=== PATIENT | male | born 1995 | race Caucasian/White ===

== ENCOUNTER 2016-11-13 01:15 | Emergency (ER) | payer MEDICAID ==
[2016-11-13 01:30] VITALS: BP 111/69; PULSE 96; RESP 18; TEMP 98.1; O2SAT 98
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
== END 2016-11-13 04:00 | disposition home or self-care (01) ==
LOC: H.ER 01:15
DX: S01.81XA Laceration without foreign body of other part of head, initial encounter (principal); W22.8XXA Striking against or struck by other objects, initial encounter; Y92.89 Other specified places as the place of occurrence of the external cause

== ENCOUNTER 2017-08-02 15:41 | Emergency (ER) | payer MEDICAID ==
[2017-08-02 16:03] VITALS: BP 124/72; PULSE 78; RESP 16; TEMP 97.9; O2SAT 98
[2017-08-02] MEDS ORDERED: Naproxen 500 MG TAB PO STA (17:35)
--- NOTE | 2017-08-02 17:45 | ED PDOC ---
HPI: Back Time Seen by Provider: 08/02/17 16:25 Chief Complaint (Nursing): Back Pain Chief Complaint (Provider): Back Pain History Per: Patient History/Exam Limitations: no limitations Onset/Duration Of Symptoms: Waxing/Waning Current Symptoms Are (Timing): Still Present Previous Symptoms: Chronic Pain Additional Complaint(s): Patient is a 22 y/o male who presents to the ED complaining of pain to the right lower back, ongoing for multiple years but worsened today. No fall or injury. States his PMD would not give him a refill so he came here, requesting pain medication. Pain worsens with movement. Patient reports he found an old bottle of Percocet yesterday and took the last one. No medications for pain relief were taken today. Otherwise: (-) chest pain, (-) SOB, (-) nausea, (-) vomiting, (-) weakness, (-) paresthesias, (-) acute bowel or bladder dysfunction , (-) abdominal pain, (-) fever, (-) hematuria (-)dysuria, frequency (-)weakness /numbess. PMD: unknown Past Medical History Reviewed: Historical Data, Nursing Documentation, Vital Signs Vital Signs: Last Vital Signs Temp 97.9 F 08/02/17 15:58 Pulse 78 08/02/17 15:58 Resp 16 08/02/17 15:58 BP 124/72 08/02/17 15:58 Pulse Ox 98 08/02/17 15:58 - Medical History PMH: Asthma, Back Problems (chronic back pain) - Family History Family History: States: Unknown Family Hx - Social History Current smoker - smoking cessation education provided: Yes SMOKER/PACKS PER DAY:: 1 Alcohol: None Drugs: Denies (quit 3 years ago) - Immunization History Hx Tetanus Toxoid Vaccination: Yes (2015) Hx Influenza Vaccination: No Hx Pneumococcal Vaccination: No - Home Medications Home Medications: Ambulatory Orders Medication Instructions Recorded No Known Home Med 02/05/17 - Allergies Allergies/Adverse Reactions: Allergies Allergy/AdvReac Type Severity Reaction Status Date / Time No Known Allergies Allergy Verified 08/02/17 15:58 Review of Systems ROS Statement: Except As Marked, All Systems Reviewed And Found Negative Constitutional: Negative for: Fever, Chills Genitourinary Male: Negative for: Incontinence, Hematuria Musculoskeletal: Positive for: Back Pain Neurological: Negative for: Weakness, Numbness Physical Exam - Reviewed Nursing Documentation Reviewed: Yes Vital Signs Reviewed: Yes - Physical Exam Comments: GENERAL APPEARANCE: Patient is awake, alert, oriented x 3, in no acute distress. Ambulatory in ED without difficulty. SKIN: Warm, dry; (-) cyanosis. EYES: (-) conjunctival pallor. ENMT: Mucous membranes moist. NECK: Supple, FROM (-) tenderness, (-) stiffness CHEST AND RESPIRATORY: (-) rales, (-) rhonchi, (-) wheezes; breath sounds equal bilaterally. HEART AND CARDIOVASCULAR: (-) irregularity; (-) murmur, (-) gallop. ABDOMEN AND GI: Soft; (-) tenderness; (-) guarding (-) distention. BACK: (+) right paralumbar tenderness, (+) mild spasm, (-) midline tenderness, (-) sciatic notch tenderness. Straight leg raising (-) bilaterally. EXTREMITIES: (-) deformity. Distal pulses good bilaterally. NEURO AND PSYCH: Mental status as above. Intact sensation bilaterally; normal strength in extension of the knees, plantar and dorsiflexion of the toes. - ECG O2 Sat by Pulse Oximetry: 98 (RA) Pulse Ox Interpretation: Normal Medical Decision Making Medical Decision Making: Initial Impression: Acute on chronic back pain Patient requesting Percocet. Hospital pain policy d/w patient in detail. Patient advised that narcotics cannot be refilled from the ED and he must see pmd or orthopedist for chronic pain management. Time: 17:27 Initial Plan: * Flexeril 10 mg PO * Naproxen 500 mg PO * IM Toradol offered but patient declined * Reevaluation Patient approaching PA and nurse multiple times throughout visit requesting refill of Percocet. Advised patient that he will need to follow up with his primary doctor or a specialist, referral for orthopedist provided. 17:58 After refusal of narcotics, patient is requesting to leave before reevaluation stating he has to go to work. States he has a ride who is here to pick him up for work and he cannot wait any longer. Patient has remained stable throughout ED visit. On examination, patient is in no acute distress, AAOx3, ambulating with steady gait. Advised to follow up with primary care physician or orthopedist in 1-2 days. Advised to take OTC medication as needed. Return to the emergency room at any time for any new or worsening symptoms. Scribe Attestation: Documented by Ibeth Garcia, acting as a scribe for Kim Pike PA-C Provider Scribe Attestation: All medical record entries made by the Scribe were at my direction and personally dictated by me. I have reviewed the chart and agree that the record accurately reflects my personal performance of the history, physical exam, medical decision making, and the department course for this patient. I have also personally directed, reviewed, and agree with the discharge instructions and disposition. Disposition - Clinical Impression Clinical Impression: Chronic back pain - Patient ED Disposition Is Patient to be Admitted: No Counseled Patient/Family Regarding: Diagnosis, Need For Followup - Disposition Referrals: Zac Chandler III, MD [Staff Provider] - Disposition: Routine/Home Disposition Time: 18:02 Condition: FAIR Additional Instructions: USE IBUPROFEN 800MG THREE TIMES A DAY NEEDED FOR PAIN. FOLLOW UP WITH ORTHO DIRECTED. Instructions: Chronic Pain (DC), Low Back Pain (DC) Forms: [employer] (Bengali) Print Language: MAURITANIAN - POA Present On Arrival: None
== END 2017-08-02 18:13 | disposition home or self-care (01) ==
LOC: H.ER 15:41
DX: G89.29 Other chronic pain (principal); J45.909 Unspecified asthma, uncomplicated; F17.210 Nicotine dependence, cigarettes, uncomplicated

== ENCOUNTER 2018-09-07 12:05 | Emergency (ER) | payer OTHER, MEDICAID ==
[2018-09-07 12:11] VITALS: BMI 20.2
[2018-09-07 12:12] VITALS: BP 113/69; PULSE 81; RESP 18; TEMP 98.5; O2SAT 99
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
== END 2018-09-07 14:19 | disposition home or self-care (01) ==
LOC: H.ER 12:05
DX: S40.022A Contusion of left upper arm, initial encounter (principal); S50.12XA Contusion of left forearm, initial encounter; J45.909 Unspecified asthma, uncomplicated; G89.29 Other chronic pain; Z04.1 Encounter for examination and observation following transport accident; V43.52XA Car driver injured in collision with other type car in traffic accident, initial encounter